=== PATIENT | male | born 1950 | race Two or more races ===

== ENCOUNTER 2024-04-09 23:22 | Emergency (ER) | payer OTHER ==
[~2024-04-09] VITALS: Ht 177.8 cm; Wt 86.2 kg
[2024-04-09] MEDS ORDERED: NORVASC10 MG PO (23:31)
[2024-04-09] MEDS ORDERED: TOPROL XL25 M1 PO (23:31)
[2024-04-10] MEDS ORDERED: RINGERS SOLUTION,LACTATED 1,000 ML IV STA (00:52)
[2024-04-10] MEDS ORDERED: BARIUM SULFATE 450 ML ORAL.SUSP PO ONE ×2 (01:03→01:15)
[2024-04-10 02:05] LABS: HEMATOCRIT 40.4 % (39.0-48.0); HEMOGLOBIN 13.9 g/dL (13-16.00); INR 1.05; MEAN CORPUSCULAR HEMOGLOBIN 32.1 pg (27.00-32.0); MEAN CORPUSCULAR HGB CONC 34.5 g/dl (32.0-36.0); PARTIAL THROMBOPLASTIN TIME 35.8 SECONDS (22.0-34.0); RED BLOOD COUNT 4.34 M/uL (4.00-6.00)
[2024-04-10 02:06] LABS: PLATELET COUNT 120 K/uL (150-450)
[2024-04-10 02:09] LABS: URINE APPEARANCE Clear; URINE BILIRRUBIN Negative (NEGATIVE); URINE BLOOD Moderate; URINE COLOR Yellow; URINE GLUCOSE Negative (NEGATIVE); URINE KETONE Negative (NEGATIVE); URINE LEUKOCYTE Negative; URINE NITRATE Negative; URINE PROTEIN Trace (NEGATIVE)
[2024-04-10 02:11] LABS: ALBUMIN 3.5 gm/dL (3.4-5.0); BILIRUBIN TOTAL 2.13 mg/dL (0.3-1.2); CALCIUM 9.3 mg/dL (8.5-10.1); CREATININE SERUM 0.99 mg/dL (0.70-1.30); GFR 74.52; GLOBULINA 4.9 G/DL (2.4-3.5); POTASSIUM 4.06 mEq/L (3.5-5.1); TOTAL PROTEIN 8.4 gm/dL (6.4-8.2)
[2024-04-10 02:12] LABS: URINE BACTERIA 12.5 uL (0.0-1933); URINE RBC 67.7 uL (0.0-20.8); URINE WBC 3.2 uL (0.0-23.2)
[2024-04-10 02:57] LABS: URINE EPITHELIAL CELLS 1.3 uL (0.0-38.8)
== END 2024-04-10 10:17 | disposition home or self-care (01) ==
LOC: ER 23:24
DX: K62.5 Hemorrhage of anus and rectum (principal); Z88.6 Allergy status to analgesic agent; K64.8 Other hemorrhoids
CPT/HCPCS: 36415; 74177; 99284; Q9965